=== PATIENT | female | born 1990 | race African-American/Black ===

== ENCOUNTER 2023-06-19 19:07 | Emergency (ER) | payer OTHER ==
[2023-06-19 19:17] VITALS: BP 114/88; PULSE 91; RESP 18; TEMP 98.3; BMI 33.6
== END 2023-06-19 20:31 | disposition home or self-care (01) ==
LOC: JER 19:07
DX: R05.9 Cough, unspecified (principal); J40 Bronchitis, not specified as acute or chronic
CPT/HCPCS: 71046-TC-FY; 99283-25